=== PATIENT | male | born 1990 | race Caucasian/White ===

== ENCOUNTER 2025-04-03 05:01 | Inpatient (IN) | payer OTHER ==
[2025-04-03 05:24] LABS: Actual Bicarbonate (HCO3v) 19.6 mEq/L (22-28); Analyzer IN Cardio CS ER; Base Excess -4.7 mEq/L (-2 - +2); Calcium, Ionized (venous) 1.03 mmol/L (1.16-1.32); Chloride (VBG) 102 mmol/L (98-106); Hematocrit-VBG 44 % (42.0-52.0); Hemoglobin (Hb) 15.1 g/dL (13.2-17.3); Potassium (VBG) 3.56 mmol/L (3.70-5.30); Puncture Site Other Site; RapidComm Collect By Lab; Sodium 135 mmol/L (133-146)
[2025-04-03 05:33] LABS: ALT (SGPT) 46 U/L (Less than 45); AST (SGOT) 43 U/L (11-34); Albumin 3.1 g/dL (3.1-4.5); Alkaline Phosphatase 118 U/L (40-110); Anion Gap 15 mmol/L (10-20); BUN (Urea Nitrogen) 14 mg/dL (8.9-20.6); Bilirubin, Total 1.1 mg/dL (0.3-1.2); Calc. Creatinine Clearance 0 mL/min (70-130); Calcium 8.0 mg/dL (7.8-10.44); Carbon Dioxide 21 mmol/L (22-29); Chloride 103 mmol/L (98-107); Globulin 3.3 g/dL (2.4-3.5); Glucose 117 mg/dL (70-105); Potassium 3.5 mmol/L (3.5-5.1); Sodium 135 mmol/L (136-145)
[2025-04-03 05:37] LABS: Troponin I Less than 0.010 ng/mL (< 0.028)
[2025-04-03 05:41] LABS: Hematocrit 41.7 % (38.8-50.0); Hemoglobin 13.9 g/dL (13.5-17.5); Mean Corpuscular Hemoglobin 28.6 pg (27.0-33.0); Mean Corpuscular Volume 85.8 fL (81.2-95.1); Platelet Count 255 10x3/uL (150-450); Red Blood Cell (RBC) Count 4.86 10x6/uL (4.32-5.72); White Blood Cell (WBC) Count 26.37 10x3/uL (3.5-10.5)
[2025-04-03 05:42] LABS: MDiff Complete? YES; Platelet Adequacy Comment Appears Adequate; RBC Morphology Within Normal Limits
[2025-04-03] MEDS ORDERED: Ketorolac Tromethamine 30 MG (1 mL) VIAL ONE (05:46)
[2025-04-03] MEDS ORDERED: Cefepime 2 GM VIAL ONE (05:47)
[2025-04-03] MEDS ORDERED: NOREPINEPHRINE 8 MG/250 ML-D5W 250 ML ONE (06:10)
[2025-04-03] MEDS ORDERED: Ondansetron PF 4 MG/2 ML Vial IVP PRN (07:52)
[2025-04-03] MEDS ORDERED: Glucagon 1 MG/ML KIT IM PRN (08:00)
[2025-04-03] MEDS ORDERED: Dextrose 50% Abboject 50 ML SYRINGE SLOW IVP PRN (08:00)
[2025-04-03 08:45] VITALS: BMI 69.9
[2025-04-03] MEDS: Enoxaparin 40 MG (0.4 mL) SYRINGE SC SCH ×2 (09:41→20:22)
[2025-04-03] MEDS: Albumin 25% 25 GM (100 mL) BOT IVPB SCH ×2 (09:41→14:17)
[2025-04-03] MEDS: Famotidine 20 MG TAB PO SCH (09:41)
[2025-04-03] MEDS: VANCOMYCIN 2 GRAM/400 ML BAG 2 GM in Premix 1 BAG IVPB SCH ×2 (10:39→14:17)
[2025-04-03] MEDS: cefTRIAXone\\ROCEPHIN 1 GM in Sodium Chloride 0.9% 100 ML IVPB SCH (13:30)
[2025-04-03] MEDS: Acetaminophen 325 MG TAB PO PRN (15:22)
[2025-04-03] MEDS: VANCOMYCIN 1.25 GM/250 ML BAG 1.25 GM in Premix 1 BAG IVPB SCH (21:32)
[2025-04-04 03:44] LABS: Vancomycin, Random 21.1 ug/mL (See Comment)
[2025-04-04 03:46] LABS: Anion Gap 12 mmol/L (10-20); BUN (Urea Nitrogen) 14 mg/dL (8.9-20.6); Calc. Creatinine Clearance 338 mL/min (70-130); Calcium 8.1 mg/dL (7.8-10.44); Carbon Dioxide 22 mmol/L (22-29); Chloride 104 mmol/L (98-107); Glucose 128 mg/dL (70-105); Potassium 4.0 mmol/L (3.5-5.1); Sodium 134 mmol/L (136-145)
[2025-04-04 03:50] LABS: Hematocrit 38.6 % (38.8-50.0); Hemoglobin 12.6 g/dL (13.5-17.5); Mean Corpuscular Hemoglobin 28.3 pg (27.0-33.0); Mean Corpuscular Volume 86.5 fL (81.2-95.1); Platelet Count 255 10x3/uL (150-450); Red Blood Cell (RBC) Count 4.46 10x6/uL (4.32-5.72); White Blood Cell (WBC) Count 30.48 10x3/uL (3.5-10.5)
[2025-04-04 03:51] LABS: MDiff Complete? YES; Platelet Adequacy Comment Appears Adequate; RBC Morphology Within Normal Limits
[2025-04-04] MEDS: Mupirocin 1 GM TUBE NASAL SCH ×2 (12:55→20:26)
[2025-04-05 03:15] LABS: #Basophils 0.06 10x3/uL (0.0-0.2); #Eosinophils 0.18 10x3/uL (0.0-0.5); #Monocytes 0.72 10x3/uL (0.0-1.1); #Neutrophils 17.18 10x3/uL (1.5-8.4); %Basophils 0.3 % (0.0-2.0); %Eosinophils 0.9 % (0.0-6.0); %Lymphocytes 9.1 % (18.0-47.0); %Monocytes 3.6 % (0.0-10.0); %Neutrophils 85.2 % (40.0-75.0); Hematocrit 39.2 % (38.8-50.0); Hemoglobin 12.5 g/dL (13.5-17.5); Mean Corpuscular Hemoglobin 28.0 pg (27.0-33.0); Mean Corpuscular Volume 87.7 fL (81.2-95.1); Platelet Count 228 10x3/uL (150-450); Red Blood Cell (RBC) Count 4.47 10x6/uL (4.32-5.72); White Blood Cell (WBC) Count 20.16 10x3/uL (3.5-10.5)
[2025-04-05 03:39] LABS: Vancomycin, Random 17.3 ug/mL (See Comment)
[2025-04-05 03:40] LABS: Calc. Creatinine Clearance 432.0 mL/min (70-130)
[2025-04-05] MEDS: cefTRIAXone\\ROCEPHIN 2 GM in Sodium Chloride 0.9% 100 ML IVPB SCH (12:00)
[2025-04-05] MEDS: Linezolid 600 MG TAB PO SCH (20:48)
[2025-04-06 05:50] LABS: #Basophils 0.04 10x3/uL (0.0-0.2); #Eosinophils 0.25 10x3/uL (0.0-0.5); #Monocytes 0.63 10x3/uL (0.0-1.1); #Neutrophils 8.37 10x3/uL (1.5-8.4); %Basophils 0.4 % (0.0-2.0); %Eosinophils 2.3 % (0.0-6.0); %Lymphocytes 14.2 % (18.0-47.0); %Monocytes 5.8 % (0.0-10.0); %Neutrophils 76.8 % (40.0-75.0); Hematocrit 43.5 % (38.8-50.0); Hemoglobin 13.5 g/dL (13.5-17.5); Mean Corpuscular Hemoglobin 27.3 pg (27.0-33.0); Mean Corpuscular Volume 88.1 fL (81.2-95.1); Platelet Count 273 10x3/uL (150-450); Red Blood Cell (RBC) Count 4.94 10x6/uL (4.32-5.72); White Blood Cell (WBC) Count 10.88 10x3/uL (3.5-10.5)
[2025-04-06] MEDS: Lisinopril 5 MG TAB PO SCH (17:37)
[2025-04-07 05:22] LABS: #Basophils 0.05 10x3/uL (0.0-0.2); #Eosinophils 0.27 10x3/uL (0.0-0.5); #Monocytes 0.77 10x3/uL (0.0-1.1); #Neutrophils 6.42 10x3/uL (1.5-8.4); %Basophils 0.5 % (0.0-2.0); %Eosinophils 2.9 % (0.0-6.0); %Lymphocytes 17.6 % (18.0-47.0); %Monocytes 8.4 % (0.0-10.0); %Neutrophils 69.8 % (40.0-75.0); Hematocrit 40.9 % (38.8-50.0); Hemoglobin 13.1 g/dL (13.5-17.5); Mean Corpuscular Hemoglobin 27.7 pg (27.0-33.0); Mean Corpuscular Volume 86.5 fL (81.2-95.1); Platelet Count 287 10x3/uL (150-450); Red Blood Cell (RBC) Count 4.73 10x6/uL (4.32-5.72); White Blood Cell (WBC) Count 9.20 10x3/uL (3.5-10.5)
[2025-04-07] MEDS: Lisinopril 10 MG TAB PO SCH (08:56)
[2025-04-07 08:57] VITALS: BP 125/79
[2025-04-07] MEDS: Clindamycin 150 MG CAP PO SCH (09:00)
[2025-04-07 16:38] VITALS: TEMP 98.7
== END 2025-04-07 19:33 | disposition home or self-care (01) | DRG 871 ==
LOC: EEVIPCON 05:01 → CSHERS 05:01 → CSHICU 06:55
PROVIDERS: ADMIT Internal Medicine; ATTEND Internal Medicine
PROC: 3E03329 Introduction of Other Anti-infective into Peripheral Vein, Percutaneous Approach (ICD-10-PCS; principal; 2025-04-03)
PROC: 3E033XZ Introduction of Vasopressor into Peripheral Vein, Percutaneous Approach (ICD-10-PCS; 2025-04-03)
PROC: 5A09357 Assistance with Respiratory Ventilation, Less than 24 Consecutive Hours, Continuous Positive Airway Pressure (ICD-10-PCS; 2025-04-03)
PROC: 30233J1 Transfusion of Nonautologous Serum Albumin into Peripheral Vein, Percutaneous Approach (ICD-10-PCS; 2025-04-03)
DX: A41.9 Sepsis, unspecified organism (principal); R65.21 Severe sepsis with septic shock; L03.115 Cellulitis of right lower limb; Z68.44 Body mass index [BMI] 60.0-69.9, adult; E87.20 Acidosis, unspecified; I10 Essential (primary) hypertension; E66.01 Morbid (severe) obesity due to excess calories; E11.9 Type 2 diabetes mellitus without complications; Z79.899 Other long term (current) drug therapy; Z79.84 Long term (current) use of oral hypoglycemic drugs; Z88.2 Allergy status to sulfonamides; G47.33 Obstructive sleep apnea (adult) (pediatric)
CPT/HCPCS: 36415; 36416; 71045; 80048; 80053; 80202; 82565; 82805; 83036; 83605; 83880; 84484; 85025; 87040; 87081; 93005; 94660; 94760; 97139; J0692; J0696; J1650; J1885; J3373; J3375; J7030; P9047